=== PATIENT | male | born 1960 | race Caucasian/White ===

== ENCOUNTER 2017-08-02 10:09 | Day surgery (SDC) | payer MEDICAID ==
[~2017-08-02] VITALS: Ht 167.6 cm; Wt 92.3 kg
[~2017-08-02 10:09] MED LIST: SODIUM CHLORIDE 0.9% 1,000 ML IV ONE
[2017-08-02] MEDS ORDERED: PROPOFOL 1% 20 ML VIAL IVP ONE (10:10)
[2017-08-02] MEDS ORDERED: SODIUM CHLORIDE 0.9% 1,000 ML IV ONE (10:30)
[2017-08-02] MEDS ORDERED: INSLAN SQ (10:40)
[2017-08-02] MEDS ORDERED: ACET-66 PO (10:40)
[2017-08-02] MEDS ORDERED: METF500T4 PO (10:40)
[2017-08-02 11:09] LABS: GLUCOMETER DEV NAME(LOC) SDS 5; GLUCOSE,POINT OF CARE 114 MG/DL (70-110)
[2017-08-02] MEDS ORDERED: OXYGEN THERAPY IH SCH (20:00)
== END 2017-08-02 13:05 | disposition home or self-care (01) ==
LOC: SURGERY 10:09
PROVIDERS: ATTEND Internal Medicine Gastroenterology
DX: K64.8 Other hemorrhoids (principal); E66.9 Obesity, unspecified; E11.9 Type 2 diabetes mellitus without complications; Z90.89 Acquired absence of other organs; Z87.891 Personal history of nicotine dependence; Z91.048 Other nonmedicinal substance allergy status; Z68.32 Body mass index [BMI] 32.0-32.9, adult; Z79.4 Long term (current) use of insulin
CPT/HCPCS: 45378; 82962; J2704; J7030